=== PATIENT | female | born 1995 | race Caucasian/White ===

== ENCOUNTER 2018-12-22 20:56 | Emergency (ER) | payer BC, OTHER ==
[2018-12-22] MEDS ORDERED: KETOROLAC TROMETHAMINE INJ/PF 30 MG/1 ML SDV IV ONE (22:35)
[2018-12-22] MEDS ORDERED: NORMAL SALINE 1000 ML 1,000 ML IV ONE (22:35)
--- NOTE | 2018-12-22 23:06 | ER Document Report ---
ED General - General Chief Complaint: Flu Symptoms Stated Complaint: DIZZINESS/COUGH Time Seen by Provider: 12/22/18 22:02 Notes: Patient is a 23-year-old female presents with complaints of runny nose cough congestion slight sore throat and fevers. Patient said the symptoms have been ongoing for 2-3 days. She works for [employer]. She says she has body aches. No difficulty breathing. Some nausea but no vomiting. She is otherwise healthy except for history of high blood pressure. No other complaints at this time. TRAVEL OUTSIDE OF THE [place] IN LAST 30 DAYS: No - Related Data Allergies/Adverse Reactions: latex [Latex] Adverse Reaction (Verified 12/22/18 20:58) Past Medical History - Social History Smoking Status: Never Smoker Chew tobacco use (# tins/day): No Frequency of alcohol use: Rare Drug Abuse: None Family History: Reviewed & Not Pertinent Patient has suicidal ideation: No Patient has homicidal ideation: No - Past Medical History Cardiac Medical History: Denies: Hx Coronary Artery Disease, Hx Heart Attack Comment Only: Hx Hypertension - LATLEY HIGH BP, NOT DX Pulmonary Medical History: Denies: Hx Asthma, Hx Bronchitis, Hx COPD, Hx Pneumonia Neurological Medical History: Denies: Hx Cerebrovascular Accident, Hx Seizures Renal/ Medical History: Denies: Hx Peritoneal Dialysis Musculoskeletal Medical History: Denies Hx Arthritis Past Surgical History: Denies: Hx Hysterectomy - Immunizations Immunizations up to date: Yes Hx Diphtheria, Pertussis, Tetanus Vaccination: Yes Review of Systems - Review of Systems Notes: My Normal Review Basic REVIEW OF SYSTEMS: CONSTITUTIONAL : Fever EENT: Denies eye, ear, throat, or mouth pain or symptoms. Denies nasal or sinus congestion. CARDIOVASCULAR: Pain with cough RESPIRATORY: Recurrent cough GASTROINTESTINAL: Denies abdominal pain. Denies nausea, vomiting, or diarrhea. GENITOURINARY: Denies difficulty urinating, painful urination, burning, frequency, or blood in urine. MUSCULOSKELETAL: Body aches SKIN: Denies rash or skin lesions. NEUROLOGICAL: Denies altered mental status or loss of consciousness. Mild headache. Denies weakness or paralysis or loss of use of either side. Denies problems with gait or speech. Denies sensory or motor loss. ALL OTHER SYSTEMS REVIEWED AND NEGATIVE. Physical Exam - Vital signs Vitals: Temp Pulse Resp BP Pulse Ox 98.8 F 101 H 20 143/79 H 99 12/22/18 20:59 12/22/18 20:59 12/22/18 20:59 12/22/18 20:59 12/22/18 20:59 - Notes Notes: General Appearance: Well nourished, alert, cooperative, no acute distress, no obvious discomfort. Dry cough on exam. Well-appearing. Vitals: reviewed, See vital signs table. Head: no swelling or tenderness to the head Eyes: PERRL, EOMI, Conjuctiva clear Mouth: No decreasd moisture Throat: No tonsillar inflammation, No airway obstruction, No lymphadenopathy Neck: Supple, no neck tenderness, no signs of meningismus on exam. Lungs: No wheezing, No rales, No rhonci, No accessory muscle use, good air exchange bilaterally. Heart: Normal rate, Regular rythm, No murmur, no rub Abdomen: Normal BS, soft, No rigidity, No abdominal tenderness, No guarding, no rebound, no abdominal masses, no organomegaly Extremities: strength 5/5 in all extremities, good pulses in all extremities, no swelling or tenderness in the extremities, no edema. Skin: warm, dry, appropriate color, no rash Neuro: speech clear, oriented x 3, normal affect, responds appropriately to questions. Course - Re-evaluation Re-evalutation: 12/23/18 02:13 Patient's x-rays negative for pneumonia. Please she looks well. Not septic or toxic appearing. She has symptoms consistent is consistent with influenza. Talked about influenza testing. She is outside the window for Tamiflu. I informed her that we could do flu test to see if it is positive. I informed her that even if it is negative she still may have the flu as it is not 100% sensitive. Patient is understanding of this and says she does not want to go forward with flu testing. She prefers just symptomatic care at this time. I did give her some IV fluids and Toradol. I will give her a prescription for Toradol to help with her body aches. I encouraged her return to ER immediately if she has difficulty breathing, vomiting, high fevers, or if she feels unwell. She agrees with plan. Dictation of this chart was performed using voice recognition software; therefore, there may be some unintended grammatical errors. - Vital Signs Vital signs: Temp Pulse Resp BP Pulse Ox 98.8 F 101 H 20 143/79 H 99 03/16/19 20:59 12/22/18 20:59 12/22/18 20:59 12/22/18 20:59 12/22/18 20:59 Discharge - Discharge Clinical Impression: Body aches, Cough Condition: Good Disposition: HOME, SELF-CARE Additional Instructions: Please take Tylenol 500 mg every 4 hours to help with body aches and fever. I have also prescribed Toradol which will likely help with your body aches. Please take this as prescribed with food. Do not take other NSAID medications such as Aspirin, Motrin, Ibuprofen, Aleve, or Advil when taking Toradol. It is okay to take Tylenol. Please return to ER immediately if you have recurrent fevers not responding to Tylenol, vomiting, difficulty breathing, or feel that you are worsening in any way. Prescriptions: Ketorolac Tromethamine [Toradol 10 mg Tablet] 10 mg PO Q8HP PRN #12 tablet PRN Reason: Forms: Return to Work
--- NOTE | 2018-12-22 23:14 | RADIOLOGY REPORT (SQ) ---
EXAM DESCRIPTION: XR CHEST 2 VIEWS COMPLETED DATE/TME: 12/22/2018 22:34 CLINICAL HISTORY: 23 years, Female, cough Comparison: None FINDINGS: No focal lung consolidation. No pleural effusion. No pneumothorax. Cardiac and mediastinal silhouette is unremarkable. No acute osseous abnormality. Soft tissues are unremarkable. IMPRESSION: No acute findings. No focal lung consolidation.
[2018-12-23 03:15] VITALS: BP 115/73
== END 2018-12-23 01:15 | disposition home or self-care (01) ==
LOC: ER 20:56
DX: R05 Cough (principal); J02.9 Acute pharyngitis, unspecified; R50.9 Fever, unspecified; R09.89 Other specified symptoms and signs involving the circulatory and respiratory systems; I10 Essential (primary) hypertension
CPT/HCPCS: 99283; 96361; 96374; 71046; J1885; J7030

== ENCOUNTER 2019-02-13 21:26 | Emergency (ER) | payer SELFPAY ==
[2019-02-13] MEDS ORDERED: ACETAMINOPHEN 325 MG TABLET PO ONE (23:47)
--- NOTE | 2019-02-13 23:59 | ER Document Report ---
ED Medical Screen (RME) - General Chief Complaint: Flank Pain Stated Complaint: FEVER,SHORTNESS OF BREATH Time Seen by Provider: 02/13/19 23:55 Primary Care Provider: BETTY BOWLES NP [Primary Care Provider] - Follow up as needed Mode of Arrival: Ambulatory Information source: Patient Notes: 23-year-old female presented to ED for complaint of chest pain, flank pain, shortness of breath, fever of 103.9 at 7 PM. She states she took some Tylenol. And at 1147 when I saw her temp was 100.3 pulse was 116. She is alert oriented respirations regular and unlabored speaking in full sentences. She is having a lot of upper abdominal chest and flank pain. She states she does not have a history of kidney stone she does have a history of PCOS and endometriosis and high blood pressure. She has had multiple laparoscopic surgeries for endometriosis. She is alert oriented respirations regular and unlabored speaking in full sentences. 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 We will also order abdomen pelvis noncontrasted CT. I have greeted and performed a rapid initial assessment of this patient. A comprehensive ED assessment and evaluation of the patient, analysis of test results and completion of medical decision making process will be conducted by an additional ED providers. TRAVEL OUTSIDE OF THE [place] IN LAST 30 DAYS: No - Related Data Allergies/Adverse Reactions: latex [Latex] Adverse Reaction (Verified 12/22/18 20:58) Past Medical History - Past Medical History Cardiac Medical History: Denies: Hx Coronary Artery Disease, Hx Heart Attack Comment Only: Hx Hypertension - LATLEY HIGH BP, NOT DX Pulmonary Medical History: Denies: Hx Asthma, Hx Bronchitis, Hx COPD, Hx Pneumonia Neurological Medical History: Denies: Hx Cerebrovascular Accident, Hx Seizures Renal/ Medical History: Denies: Hx Peritoneal Dialysis Musculoskeltal Medical History: Denies Hx Arthritis Past Surgical History: Denies: Hx Hysterectomy - Immunizations Immunizations up to date: Yes Hx Diphtheria, Pertussis, Tetanus Vaccination: Yes Physical Exam - Vital signs Vitals: Temp Pulse Resp BP Pulse Ox 99.8 F 145 H 18 138/88 H 96 02/13/19 21:44 02/13/19 21:44 02/13/19 21:44 02/13/19 21:44 02/13/19 21:44 Course - Vital Signs Vital signs: Temp Pulse Resp BP Pulse Ox 99.8 F 145 H 18 138/88 H 96 02/13/19 21:44 02/13/19 21:44 02/13/19 21:44 02/13/19 21:44 02/13/19 21:44 Doctor's Discharge - Discharge Referrals: BETTY BOWLES NP [Primary Care Provider] - Follow up as needed
[2019-02-14 00:34] LABS: ABSOLUTE BASOPHILS # (AUTO) 0.1 10^3/uL (0.0-0.2); ABSOLUTE LYMPHOCYTES (AUTO) 1.7 10^3/uL (0.5-4.7); ABSOLUTE MONOCYTES (AUTO) 1.3 10^3/uL (0.1-1.4); ABSOLUTE NEUT (AUTO) 15.5 10^3/uL (1.7-8.2); BASOPHILS % (AUTO) 0.4 % (0-2); HEMATOCRIT 40.6 % (36.0-47.0); LYMPHOCYTES % (AUTO) 9.3 % (13-45); MEAN CORPUSCULAR HEMOGLOBIN 29.3 pg (27.0-33.4); MEAN CORPUSCULAR HGB CONC 34.3 g/dL (32.0-36.0); MEAN CORPUSCULAR VOLUME 85 fl (80-97); MONOCYTES % (AUTO) 7.2 % (3-13); PLATELET COUNT 202 10^3/uL (150-450); RED BLOOD COUNT 4.76 10^6/uL (3.72-5.28); RED CELL DISTRIBUTION WIDTH 12.7 % (11.5-14.0); SEGMENTED NEUTROPHILS % (AUTO) 83.1 % (42-78); TOTAL CELLS COUNTED % (AUTO) 100 %; WHITE BLOOD COUNT 18.7 10^3/uL (4.0-10.5)
[2019-02-14 00:55] LABS: ALANINE AMINOTRANSFERASE 33 U/L (9-52); ALBUMIN 4.6 g/dL (3.5-5.0); ALKALINE PHOSPHATASE 82 U/L (38-126); ANION GAP 16 (5-19); ASPARTATE AMINO TRANSFERASE 23 U/L (14-36); BILIRUBIN,DIRECT 0.4 mg/dL (0.0-0.4); BILIRUBIN,TOTAL 1.3 mg/dL (0.2-1.3); BLOOD UREA NITROGEN 10 mg/dL (7-20); CALCIUM 9.6 mg/dL (8.4-10.2); CARBON DIOXIDE 23 mmol/L (22-30); CHLORIDE 99 mmol/L (98-107); GLUCOSE 112 mg/dL (75-110); LIPASE 69.4 U/L (23-300); POTASSIUM 3.6 mmol/L (3.6-5.0); SODIUM 137.9 mmol/L (137-145); TOTAL PROTEIN 7.9 g/dL (6.3-8.2)
--- NOTE | 2019-02-14 01:07 | RADIOLOGY REPORT (SQ) ---
CLINICAL HISTORY: bilateral flank PAIN COMPARISON: None. TECHNIQUE: CT ABDOMEN PELVIS WITHOUT IV CONTRAST on 02/14/2019 12:00 AM CDT This exam was performed according to our departmental dose-optimization program, which includes automated exposure control, adjustment of the mA and/or kV according to patient size and/or use of iterative reconstruction technique. FINDINGS: Lower lungs are clear. Abdomen: Liver is fatty in attenuation. There is no biliary dilatation. Gallbladder is normal in appearance. The pancreas and spleen are normal in appearance. The adrenal glands and kidneys are unremarkable. Abdominal aorta is normal in course and caliber without aneurysm. There is no free air. There is no retroperitoneal adenopathy. Pelvis: There is no bowel obstruction. Urinary bladder is unremarkable. There is no free fluid. Appendix is normal. Uterus is normal in size. Skeleton: There are no acute osseous findings. No suspicious bony lesions. IMPRESSION: No acute inflammatory process. No renal or ureteral calculi.
[2019-02-14 03:00] LABS: APPEARANCE,URINE SLIGHTLY-CLOUDY; BILIRUBIN,URINE NEGATIVE (NEGATIVE); COLOR,URINE AMBER; GLUCOSE, URINE NEGATIVE (NEGATIVE); KETONES,URINE 20 mg/dL (NEGATIVE); LEUKOCYTE ESTERASE,URINE NEGATIVE (NEGATIVE); NITRITE,URINE NEGATIVE (NEGATIVE); PROTEIN,URINE 30 mg/dL (NEGATIVE); URINE SPECIFIC GRAVITY 1.028
--- NOTE | 2019-02-14 03:23 | ER Document Report ---
ED General - General Chief Complaint: Flank Pain Stated Complaint: FEVER,SHORTNESS OF BREATH Time Seen by Provider: 02/13/19 23:55 Primary Care Provider: BETTY BOWLES NP [Primary Care Provider] - Follow up in 3-5 days Mode of Arrival: Ambulatory Notes: Patient is a pleasant 23-year-old female presents with complaint of onset of fever and and suprapubic pain and dysuria with pain going around flanks into the lower back. No vomiting. Some nausea. No diarrhea. No blood in her urine. No runny nose, cough or congestion. No history of frequent UTIs. Does not think she could be . TRAVEL OUTSIDE OF THE [place] IN LAST 30 DAYS: No - Related Data Allergies/Adverse Reactions: latex [Latex] Adverse Reaction (Verified 12/22/18 20:58) Past Medical History - General Information source: Patient - Social History Smoking Status: Never Smoker Frequency of alcohol use: None Drug Abuse: None Family History: Reviewed & Not Pertinent Patient has suicidal ideation: No Patient has homicidal ideation: No - Past Medical History Cardiac Medical History: Denies: Hx Coronary Artery Disease, Hx Heart Attack Comment Only: Hx Hypertension - LATLEY HIGH BP, NOT DX Pulmonary Medical History: Denies: Hx Asthma, Hx Bronchitis, Hx COPD, Hx Pneumonia Neurological Medical History: Denies: Hx Cerebrovascular Accident, Hx Seizures Renal/ Medical History: Denies: Hx Peritoneal Dialysis Musculoskeletal Medical History: Denies Hx Arthritis Past Surgical History: Reports: Hx Gynecologic Surgery - x3 for endometriosis. Denies: Hx Hysterectomy - Immunizations Immunizations up to date: Yes Hx Diphtheria, Pertussis, Tetanus Vaccination: Yes Review of Systems - Review of Systems Notes: My Normal Review Basic REVIEW OF SYSTEMS: CONSTITUTIONAL : Fever EENT: Denies eye, ear, throat, or mouth pain or symptoms. Denies nasal or sinus congestion. RESPIRATORY: Denies cough, cold, or chest congestion. Denies shortness of breath, difficulty breathing, or wheezing. GASTROINTESTINAL: Suprapubic abdominal pain. Vomiting. GENITOURINARY: Dysuria and urinary frequency FEMALE GENITOURINARY: Denies vaginal bleeding, abnormal or irregular periods. MUSCULOSKELETAL: Bilateral low back pain SKIN: Denies rash or skin lesions. NEUROLOGICAL: Denies altered mental status or loss of consciousness. Denies headache. Denies weakness or paralysis or loss of use of either side. Denies problems with gait or speech. Denies sensory or motor loss. ALL OTHER SYSTEMS REVIEWED AND NEGATIVE. Physical Exam - Vital signs Vitals: Temp Pulse Resp BP Pulse Ox 99.8 F 145 H 18 138/88 H 96 02/13/19 21:44 02/13/19 21:44 02/13/19 21:44 02/13/19 21:44 02/13/19 21:44 - Notes Notes: General Appearance: Well nourished, alert, cooperative, no acute distress, no obvious discomfort. Vitals: reviewed, See vital signs table. Head: no swelling or tenderness to the head Eyes: PERRL, EOMI, Conjuctiva clear Lungs: No wheezing, No rales, No rhonci, No accessory muscle use, good air exc hange bilaterally. Heart: Tachycardic rate, Regular rythm, No murmur, no rub Abdomen: Normal BS, soft, No rigidity, mild suprapubic abdominal tenderness, No guarding, no rebound, no abdominal masses, no organomegaly Back: Positive Mukund sign bilaterally. Extremities: strength 5/5 in all extremities, good pulses in all extremities, no swelling or tenderness in the extremities, no edema. Skin: warm, dry, appropriate color, no rash Neuro: speech clear, oriented x 3, normal affect, responds appropriately to questions. Course - Re-evaluation Re-evalutation: 02/14/19 05:55 She clinically looks very well on exam. She says she feels much improved. She says she feels fluids. Urinalysis is not consistent with UTI however her symp toms are very consistent that she has flank pain, back pain, dysuria. I do not suspect pelvic infection that she does not have any pelvic pain or abnormal vaginal discharge. I have given a dose of Rocephin. I will place her on Keflex. We will send her urine for culture. I informed her that if she still having fevers up to 24 hours and she must return to ER for reevaluation. Patient agrees with plan and will be discharged home. Scan was obtained in triage and this did not show any evidence of kidney stone or any other acute intra-abdominal or pelvic process. Dictation of this chart was performed using voice recognition software; therefore, there may be some unintended grammatical errors. - Vital Signs Vital signs: Temp Pulse Resp BP Pulse Ox 98.2 F 104 H 18 120/71 100 02/14/19 05:37 02/14/19 05:37 02/14/19 05:37 02/14/19 05:37 02/14/19 05:37 - Laboratory Result Diagrams: 02/14/19 00:05 02/14/19 00:05 Laboratory results interpreted by me: 02/14/19 02/14/19 02/14/19 00:05 00:05 00:15 WBC 18.7 H Seg Neutrophils % 83.1 H Lymphocytes % 9.3 L Absolute Neutrophils 15.5 H Glucose 112 H Urine Protein 30 H Urine Ketones 20 H Urine Blood MODERATE H Urine Urobilinogen 4.0 H Discharge - Discharge Clinical Impression: Dysuria Fever Qualifiers: Fever type: unspecified Qualified Code(s): R50.9 - Fever, unspecified Condition: Good Disposition: HOME, SELF-CARE Additional Instructions: Based on your symptoms I suspect she probably have a UTI or kidney infection. Your CT scan did not show any concerning findings. There is no evidence of kidney stone. We will place you on antibiotics. Please take the antibiotics as prescribed. Please have a low threshold to return to ER if you develop increasing pain, vomiting, recurrent fevers after 24 hours, or if you feel that you are worsening in any way. If you do have any fevers over the next 24 hours and should take Tylenol 500 mg. If you continue to have fevers after 24 hours and you should return to the ER for reevaluation. Prescriptions: Cephalexin Monohydrate [Keflex 500 mg Capsule] 500 mg PO Q6H 7 Days capsule Referrals: BETTY BOWLES NP [Primary Care Provider] - Follow up in 3-5 days
[2019-02-14] MEDS ORDERED: CEFTRIAXONE 1 GM/D5W RTU 1 GM/50 ML RTUPB IV ONE (03:30)
[2019-02-14] MEDS: NORMAL SALINE 1000 ML 1,000 ML IV PRN ×2 (03:38→04:50)
[2019-02-14 05:38] VITALS: BP 120/71
== END 2019-02-14 06:02 | disposition home or self-care (01) ==
LOC: ER 21:26
DX: R50.9 Fever, unspecified (principal); R10.30 Lower abdominal pain, unspecified; R30.0 Dysuria; R11.0 Nausea; R35.0 Frequency of micturition; R00.0 Tachycardia, unspecified; M54.5 Low back pain; Z87.42 Personal history of other diseases of the female genital tract
CPT/HCPCS: 99284; 96361; 96365; 36415; 87040; 87086; 83690; 84703; 85025; 80053; 81001; 84484; 74176; J7030; J0696